=== PATIENT | female | born 1965 | race Caucasian/White ===

== ENCOUNTER 2019-09-09 10:28 | Emergency (ER) | payer MEDICARE, OTHER ==
[~2019-09-09] VITALS: Wt 87.1 kg
[2019-09-09 11:32] LABS: BASO # 0.1 10*3/uL (0.0-0.1); BASO % 0.6 % (0.0-1.0); EOS # 0.2 10*3/uL (0.0-0.4); EOS % 2.1 % (1.0-4.0); HEMATOCRIT 43.4 % (37.0-47.0); HEMOGLOBIN 13.1 g/dl (12.0-16.0); LYMPH # 3.2 10*3/uL (1.3-4.4); LYMPH % 29.4 % (27.0-41.0); MEAN CELL VOLUME 82.4 fl (81.0-99.0); MEAN CORPUSCULAR HGB 24.9 pg (27.0-31.0); MEAN CORPUSCULAR HGB CONC 30.2 g/dl (33.0-37.0); MEAN PLATELET VOLUME 10.8 fl (9.6-12.3); MONO # 0.7 10*3/uL (0.1-1.0); MONO % 6.5 % (3.0-9.0); NEUT # 6.6 10*3/uL (2.3-7.9); NEUT % 60.8 % (47.0-73.0); PLATELET COUNT AUTOMATED 397 10*3/uL (130-400); RED BLOOD COUNT 5.27 10*6/uL (4.10-5.10); WHITE BLOOD COUNT 10.8 10*3/uL (4.8-10.8)
[2019-09-09 11:36] LABS: BILIRUBIN NEGATIVE (NEGATIVE); BLOOD NEGATIVE (NEGATIVE); CLARITY CLEAR (CLEAR); COLOR YELLOW (YELLOW); GLUCOSE NEGATIVE (NEGATIVE); KETONE NEGATIVE (NEGATIVE); SPECIFIC GRAVITY 1.005 (1.005-1.030)
[2019-09-09 11:37] LABS: LEUKO ESTERASE TRACE (NEGATIVE); NITRITE NEGATIVE (NEGATIVE); PH 7.5 (5.0-9.0); UROBILINOGEN 0.2 E.U./dl (0.2-1.0)
[2019-09-09 11:45] LABS: RBC 0-2 rbc/hpf (0-2); WBC 0-2 wbc/hpf (0-5)
[2019-09-09 11:46] LABS: BACTERIA 2+; EPITHELIAL CELLS 0-2
[2019-09-09 11:57] LABS: ALBUMIN 4.1 gm/dl (3.1-4.5); ALKALINE PHOSPHATASE 98 U/L (45-117); BUN 7 mg/dl (7-24); CHLORIDE 112 mmol/L (98-107); POTASSIUM 3.7 mmol/L (3.5-5.1); SGOT/AST 21 IU/L (3-35); SGPT/ALT 22 U/L (12-78); SODIUM 143 mmol/L (136-145)
[2019-09-09] MEDS ORDERED: ABILIFY5 MG PO (13:56)
[2019-09-09] MEDS ORDERED: PREVACID30 M2 PO (13:57)
[2019-09-09] MEDS ORDERED: PRISTIQ50 MG PO (13:59)
[2019-09-09] MEDS ORDERED: B-12500 MC1 PO (14:00)
[2019-09-09] MEDS ORDERED: VITAMIN D3125 MCG PO (14:01)
[2019-09-09] MEDS ORDERED: LAMOTRIGINE150 MG PO (14:03)
[2019-09-09] MEDS ORDERED: LITHIUM CARBON300 M1 PO (14:05)
[2019-09-09] MEDS ORDERED: NYSTATIN15 GM T (14:06)
[2019-09-09] MEDS ORDERED: ROPINIROLE HYDRO1 MG PO (14:08)
[2019-09-09] MEDS ORDERED: CARAFATE1 GM/10 ML PO (14:09)
[2019-09-09] MEDS ORDERED: PROMETHAZINE25 M1 PO (14:10)
== END 2019-09-09 15:30 | disposition home health service (06) ==
LOC: ED 10:28
PROVIDERS: Emergency Medicine
DX: F32.3 Major depressive disorder, single episode, severe with psychotic features (principal); R41.82 Altered mental status, unspecified; F60.0 Paranoid personality disorder; R62.7 Adult failure to thrive; E11.9 Type 2 diabetes mellitus without complications; Z88.0 Allergy status to penicillin; Z88.5 Allergy status to narcotic agent; Z79.899 Other long term (current) drug therapy

== ENCOUNTER 2019-09-09 15:47 | Inpatient (IN) | payer MEDICARE, OTHER ==
[~2019-09-09] VITALS: Ht 170.1 cm; Wt 89.8 kg
[2019-09-09 15:34] VITALS: BP 138/64
--- NOTE | 2019-09-09 15:34 | NUR ---
ANNABELLA HOWELL a 54 year old F admitted via wheel chair from the EMERGENCY ROOM as a emergency 72 hr. hold admission. Arrived on unit at 1534. ALLERGIES: ASA, CODEINE, PCN. Vital signs are: [id number]/64 SPO2 100% RA. Admitted under the services of Dr. TARUN MENDIETA,[facility]. A search was conducted and hazardous articles were removed. Client was oriented to the unit. DONAL PANG PT IS CONFUSED. APPEARS TO HAVE INTELLECTUAL DEFICIT. PT WANTING PHYSICAL CONTACT WITH ALL STAFF, ATTEMPTING TO GIVE HUGS AND KISSES. PT BECAME SOMEWHAT ANXIOUS UPON ARRIVAL AND BEGAN MAKING CHILD-LIKE GRUNTS, APPEARS FEARFUL. PT CALMED WITH REDIRECTION AND EMOTIONAL SUPPORT. PT ABLE TO MINIMALLY EXPRESS NEEDS, STATES "I'M HUNGRY". PROVIDED WITH SNACK AND BEVERAGE. ABLE TO FEED SELF. PT IS A MAXIMUM 2 ASSIST WITH TRANSFERS, CURRENTLY IN W/C, PROPELLING SELF IN HALLS. PT IS INCONTINENT OF BLADDER, PROVIDED WITH HOC.
[~2019-09-09 15:47] MED LIST: ABILIFY5 MG PO; B-12500 MC1 PO; CARAFATE1 GM/10 ML PO; LAMOTRIGINE150 MG PO; LITHIUM CARBON300 M1 PO; NYSTATIN15 GM T; PREVACID30 M2 PO; PRISTIQ50 MG PO; PROMETHAZINE25 M1 PO; ROPINIROLE HYDRO1 MG PO; VITAMIN D3125 MCG PO
--- NOTE | 2019-09-09 15:51 | NUR ---
Spoke with Kyle at [facility]. Pt. will return to facility LTC and is her Own person at this time. Pt. has no family. Has a boyfriend who is currently ill himself. He trys to assist patient. NO POA or Guardian at this time.
[2019-09-09 19:40] VITALS: BP 139/68
--- NOTE | 2019-09-09 20:28 | NUR ---
24 HR chart check completed.
--- NOTE | 2019-09-10 00:02 | NUR ---
P-CONFUSED, SELECTIVELY MUTE, COGNITIVE DEFICIT, ANXIOUS I-ENCOURAGE VENTILATION OF FEELINGS & NEEDS, MONITOR BEHAVIORS, ADMINISTER MEDS, MONITOR SLEEP R-PT HAS BEEN SITTING IN THE DINING ROOM IN A WHEEL CHAIR KEEPING TO HERSELF & HOLDING A BABY DOLL. BEHAVIORS ARE CHILDLIKE. CONTINUOUSLY HOLDING BABY DOLL & LOOKING AT IT & ATTEMPTING TO PUT BINKI IN ITS MOUTH. PT IS MUTE. FACIAL APPEARANCE IS FEARFUL. DOES NOT MAKE NEEDS KNOWN VERBALLY. HELD A CUP OUT FOR A DRINK. INITIALLY MADE A FACE & TURNED HEAD FOR MEDS BUT ON SECOND ATTEMPT COMPLIANT WITH MEDS TAKEN CRUSHED & MIXED IN APPLESAUCE. FED SELF SNACK. NOTED TO HAVE INCREASED ANXIETY & CHLDLIKE NOISES & GRUNTS WHEN STAFF MOVED HER FROM DINING ROOM TO HER ROOM VIA WHEELCHAIR. EVENTUALLY CALMED WITH REASSURANCE. INCONTINENT OF BLADDER. HOC PROVIDED BY 2 STAFF ASSISTS. P-CONTINIUE TO MONITOR & PROVIDE PHYSICAL ASSISTANCE & EMOTIONAL SUPPORT
--- NOTE | 2019-09-10 05:46 | NUR ---
PT HAS SLEPT PAST 2229.
[2019-09-10 07:12] LABS: THYROID STIM HORMONE (HS) 2.77 uIU/ml (0.358-4.75)
[2019-09-10 07:41] LABS: VITAMIN D, 25-HYDROXY 51.3 ng/mL (30-100)
[2019-09-10 08:00] VITALS: BP 114/74
--- NOTE | 2019-09-10 08:05 | NUR ---
Treatment Plan meeting was held with Dr. Smith, MARY ALICE Vargas, RN, AT, INSURANCE CONSULTANT-S and Annealer Helper. Plan for discharge next week. Pt. is LTC Resident at the [facility] and will return at discharge. Dr. Smith Gave orders for Pt. to sign Voluntary Admission due to [place].
--- NOTE | 2019-09-10 11:28 | NUR ---
P: POOR COGNITION WITH MEMORY DEFICIETS, WEEPY, RAMBLED SPEECH, DIFFILTY WITH NEEDS AND COMMUNICATION, ATTACHMENT TO TOY BABY DOLL I: REDIRECT, ENCOURAGE CONVERSATION WITH PEERS AND STAFF, REORIENT TO TIME AND PLACE NEEDED. IDENTIFY TRIGGERS OF TEARFULNESS, IDENTIFY DOLL AND DISCUSS NEEDS TO BE WITH THE IT. R: PT HAS BEEN ABLE TO STATE WHEN SHE NEEDS TO GO TO THE BATHROOM, RAISING HAND AND WAVING TO STAFF TO CATCH ATTENTIONS, PT USES VARIOUS WORDS AND WILL BE REMINDED OF PROPER TERMS TO ASSIST IN MEMORY GAP. UNABLE TO BE STATE YEAR, UNABLE TO STATE WHAT LOCATION WAS, REORIENTED ASNEEDED. PT DID BECOME WEEPY AT TIMES THIS AM DUE TO FATIGUE, ENCOURAGED TO REMAIN UP UNTIL AFTER LUNCH AND HAVE A REST PERIOD. DOLL IS A COMFORT ITEM FOR HER. P: CONTINUE TO MONITOR PT FOR COMMUNICATION SKILLS, ENCOURAGE INTERACTIONS, REDIRECTION, NO SI/HI OR DELUSIONS NOTED. MEDICAITON COMPLIANT AND CONTINENT OF B&B THIS SHIFT.
--- NOTE | 2019-09-10 11:43 | NUR ---
AM GROUP PT PARTICIPATED IN ASSESSMENT. PT WAS UNABLE TO ANSWER SOME QUESTIONS AND WAS FOCUSED ON LEAVING AND "GOING HOME". PT THEN WAS WITH HOT WORT SETTLER AND DID NOT ATTEND MORNING GROUP THERAPY.
--- NOTE | 2019-09-10 12:30 | NUR ---
Karlene Loomis from [facility] in to see patient for Onsite Assessment. Advised of Plans to discharge Next Week with return to the [facility]. Provided with Updates and faxed Clinical Updates to facility.
--- NOTE | 2019-09-10 14:25 | NUR ---
Observed pt crying while in the activity room sitting in a wheelchair by a table. Went to pt who repeatedly stated, "Help me." Provided support and reassured pt that she would be helped here. At RNs suggestion, moved pt in the room so that she could watch TV. Pt was not satisfied. Pt was then moved again and placed closer to the door. Pt continued to be unsatisfied. Observed pt reposition herself in the w/c and then begin to propel herself from the room. Went with pt to one of the quiet rooms and sat with pt. Pt was tearful at first. Empathized with pt and continued to attempt to engage pt in conversation. Pt slowly began talking. Pt shared that she had a brother Ga who was killed in a motorcycle accident when he was a young adult. She spoke of having two children Isaac who has an addiction to cocaine and a daughter named Marci. She shared that her friend Judah is fighting cancer. Pt also spoke of her mother who had dementia and is now . Pt displayed dysphasia and would become upset with herself when she was unable to say the word that she wanted. Validated to pt that it must be extremely frustrating to not be able to say what pt wanted to say. Pt nodded her head up and down and stated, "Yes, frustrating." Pt continued to hold the baby doll throughout the time together. At one point pt stated, "People probably think I'm crazy because I'm holding this doll." Reassured pt that it was fine for pt to hold the doll and spoke of it being comforting to hold a baby. Pt nodded her head in agreement. Pt stated that she her mouth was dry. Informed pt that we would go get pt some water. As this life insurance underwriter was wheeling pt to the activity room, pt put her feet down. Pt stated, "I don't want to go in there." Returned pt to the quiet room and got pt a drink of water. Later the hospital liaison for the [facility] visited with pt. Pt knew her and appeared happy to see her. Pt then stated that she wanted to return to the [facility] today. All present reassured pt that she would return to the [facility] in a few days. Pt then asked that we each promise that pt will return to the [facility].
--- NOTE | 2019-09-10 15:39 | NUR ---
PM GROUP PT DID NOT ATTEND AFTERNOON GROUP THERAPY. PT WAS IN BED RESTING.
--- NOTE | 2019-09-10 17:45 | NUR ---
Shift chart check completed.
[2019-09-10 20:00] VITALS: BP 110/64
--- NOTE | 2019-09-10 22:49 | NUR ---
Patient resting quietly with no c/o discomfort. Respirations easy and regular. Vital signs stable. No overt distress. DONAL PANG
--- NOTE | 2019-09-11 05:05 | NUR ---
24 HR chart check completed.
--- NOTE | 2019-09-11 05:11 | NUR ---
PT SLEPT 8 HOURS
[2019-09-11 08:00] VITALS: BP 122/82
--- NOTE | 2019-09-11 08:06 | NUR ---
Patient eating breakfast at this time in dining room with peers. Respirations easy and regular. Vital signs stable. No overt distress. PAM PEÑALOZA on unit to see pt at this time, update given.
--- NOTE | 2019-09-11 08:56 | NUR ---
PHYSICAL THERAPY Screen received pt is shelter care resident [facility] w staff SCOTT peñaloza, pt has limited ambulatory skills and mainly propels in w/c w assist. Per staff pt is at her baseline no skilled need at this time. Please consult PT if status changes, thank you. Shelley Jimenez PT
--- NOTE | 2019-09-11 11:24 | NUR ---
and on unit to see pt at this time, made aware of urine culture result and pt not currently recieving ATB therapy. Per no tx needed at this time d/t colony count 50,000. NNO recieved at this time.
--- NOTE | 2019-09-11 13:37 | NUR ---
AM GROUP PT WAS ENCOURAGED TO ATTEND MORNING GROUP THERAPY BUT CHOSE NOT TO ATTEND. PT STAYED IN THE [facility].
--- NOTE | 2019-09-11 14:31 | NUR ---
Pt continent this shift, staff has attempted to assist pt to BR multiple times t/o morning and afternoon, pt refuses, pt laying in bed at this time resting per pt request. Will reattempt to bisi pt before dinner.
--- NOTE | 2019-09-11 15:52 | NUR ---
notified of Mead level 1.47, verbal order recieved to decrease Mead dose to 300mg TID with first dose to be given tonight at HS. Order read back and verified. Witnessed by 2nd RN [email or web address].TABBY.
--- NOTE | 2019-09-11 15:55 | NUR ---
PM GROUP PT DID NOT ATTEND AFTERNOON GROUP THERAPY.PT WAS IN BED RESTING.
--- NOTE | 2019-09-11 17:06 | NUR ---
Pt toileted before dinner, pt refused to assist staff with standing or sit on toilet correctly. Pt refusing to bed legs to sit on toilet, attempted to put self on floor. Pt required staff assist x4 to safely complete hygiene care and transfer pt back to wheelchair. Immediately upon returning to chair for dinner pt yelling out "it's not fair, I want to go back to bed, it's not fair". Encouraged pt to stay up for dinner. Pt agreeable. Pt eating dinner at this time.
--- NOTE | 2019-09-11 17:52 | NUR ---
P- CONFUSION, ANXIETY, ISOLATIVE, UNCOOPERATIVE WITH HANDS ON CARE, COMMUNICATION DEFICIT. DEPRESSED MOOD, PERIODS OF TEARFULNESS THIS AM. I- ORIENTATION, MOOD AND BEHAVIORS ASSESSED. ASSESSED PT FOR SI/HI, INTENT OR PLAN. ASSESSED PT FOR S/S HALLUCINATIONS, PARANOIA AND/OR DELUSIONS. MEDICATIONS ADMINISTERED PER PHYSICIAN'S ORDERS. ASSISTANCE WITH ADL CARE PROVIDED NEEDED. ENCOURAGED PT TO ATTEND AND PARTICIPATE IN JAMIL [facility]IEU GROUPS AND ACTIVITIES. R- PT IS ALERT WITH CONFUSION, RESPS EASY AND EVEN ON ROOM AIR. MOOD APPEARS DEPRESSED, ANXIOUS AT TIMES, TEARFUL THIS AM. AFFECT FLAT. COMMUNICATION DEFICIT NOTED. AT TIMES PT ONLY COMMUNICATES USING GRUNTING NOISES AND HAND MOTIONS, AT OTHER TIMES PT IS ABLE TO COMMUNICATE MORE CLEARLY WITH SPOKEN WORDS. PT DENIES SI/HI, INTENT OR PLAN. PT DENIES HALLUCINATIONS, NO RESPONSE TO INTERNAL STIMULI NOTED. PT APPEARS FEARFUL OF PEERS, REFUSES TO GO INTO DINING ROOM DEPSITE ENCOURAGEMENT, PT REMAINS WITHDRAWN TO SELF. PT UNCOOPERATIVE WITH HANDS ON CARE, REFUSED BATHROOM MULTIPLE TIMES, ONCE PT WAS IN BATHROOM FOR HYGIENE CARE PT REFUSED TO PARTICIPATE IN CARE OR BEAR WEIGHT FOR TRANSFERS REQUIRING EXTRA STAFF ASSISTANCE TO COMPLETE ADLS SAFELY. PT IS MED COMPLIANT WITHOUT DIFFICULTY. NO ACUTE DISTRESS NOTED. P- PLAN TO CONTINUE CURRENT TREATMENT, CONTINUE TO MONITOR MOOD AND BEHAVIORS, PROVIDE APPROPRIATE REORIENTATION, REDIRECTION AND 1:1 NEEDED. CONTINUE TO ENCOURAGE MEDICATION COMPLIANCE WELL GROUP ATTENDANCE AND PARTICIPATION.
--- NOTE | 2019-09-11 18:23 | NUR ---
SHIFT CHART CHECK COMPLETED.
[2019-09-11 19:48] VITALS: BP 130/82
--- NOTE | 2019-09-11 20:00 | NUR ---
P--PARANOIA, NON COMPLIANCE WITH DAILY ADL'S I--TOILETED CLIENT WITH MUCH DIFFICULTY AND ASSIST OF 4 EARLIER IN DAY. PLACED IN QUIET ROOM AT HER REQUEST. DIETARY NEEDS MET BY STAFF. EMOTIONAL SUPPORT PROVIDED R--I WANT TO GO TO BED. YOU GUYS ARE MEAN. MEDICATION COMPLIANT WITH MUCH ENCOURAGEMENT P--MONITOR FOR CHANGES IN BEHAVIOR/MOOD. MONITOR Q 15 MINUTES AND PRN FOR SAFETY
--- NOTE | 2019-09-12 05:36 | NUR ---
CLIENT HAS FINALLY FALLEN ASLEEP AFTER ROOMMATE MOVED.
--- NOTE | 2019-09-12 05:36 | NUR ---
24 HR chart check completed.
[2019-09-12 07:52] VITALS: BP 128/65
--- NOTE | 2019-09-12 11:35 | NUR ---
P: PARANOID, FEARFUL, ATTENTION SEEKING, CHILDLIKE, I&R: COMFORT PT AND ENSURE SHE FEELS SAFE IN AREAS, PT BECOMES UPSET IF TAKEN TO LARGE LOUNGE AREA WITH PEERS, MORE AT EASE WHEN SHE IS IN QUIET ROOM WITH BACK TO A WALL. PT DOES NOT ALWAYS USE WORDS FOR COMMUNICATIONS SHE WILL MUMBLE AND MOAN OUT RANDOMLY, SHE WILL COMMUNICATE WITH SOME STAFF CONSISTENTLY WITH WORDS AND OTHERS HAND MOTIONS. ENCOURAGE TO COMMUNICATE WITH WORDS AND WITH ALL AROUND STAFF MEMBERS. PT UNABLE TO STATE WHY SHE NO LONGER WANTS TO SIT IN THE LOUNGE, BUT REFUSES TO ENTER THE ROOM. STAFF HAS OFFERED VARIOUS SITTING AREAS WITH BACK TO WALL. PT WILL PUT FEET DOWN AND WILL NOT EVEN LET STAFF TAKE HER TO THE DOOR WAY. AT THIS TIME PT TO CONITNUE TO BE ENCOURAGED AND COMFORTED ON HER SAFETY ON OUR UNIT. PT HAS REQUESTED NUMEROUS ITEMS AND THEN WHEN OFFERED SHE STATES THAT IT IS NOT ENOUGH OR NOT RIGHT. PT HAS ATTACHMENT TO A BABY DOLL AND FINDS COMFORT IN THE ITEM. SHE IS WILLING TO RELEASE DOLL TO STAFF FOR "BABYSITTING" P: CONTINUE TO MONITOR FOR BEHAVIORS, NO SI/HI NOTED, PT REMAINS MEDICATION COMPLIANT AND 15 MIN CHECKS P:CONTINUE TO WORK WITH PT ON HER SAFETY NEEDS
--- NOTE | 2019-09-12 11:50 | NUR ---
AM GROUP PT CHOSES NOT TO ATTEND ANY GROUP THERAPY. PT STAYS IN THE QUIET ROOM OR SITS RIGHT OUTSIDE OF THE NURSES STATION.
--- NOTE | 2019-09-12 15:37 | NUR ---
Consult for called to office.
--- NOTE | 2019-09-12 15:44 | NUR ---
PM GROUP PT DID NOT ATTEND AFTERNOON GROUP THERAPY. PT WAS IN BED RESTING.
--- NOTE | 2019-09-12 18:54 | NUR ---
PT LIMITED VERBAL INTERACTION TODAY, POOR APPETITE THIS EVENING. REDIRECTED THROUGHOUT THE DAY
[2019-09-12 20:00] VITALS: BP 120/78
--- NOTE | 2019-09-12 23:45 | NUR ---
P-TEARFUL, CONFUSION, LIMITED COMMUNICATION, ISOLATIVE I-REDIRECTION WITH 1:1 THERAPEUTIC INTERVENTIONS AND PRESENT REALITY. EDUCATE AND ENCOURAGE GROUP THERAPY WHILE AWAKE R-PATIENT MEDICATION COMPLAINT AT HS. PATIENT ISOLATIVE IN QUIET AREA AT HS. PATIENT ABLE TO SELF PROPEL ON UNIT IN WHEELCHAIR. PATIENT WITH EPISODES OF TEARFULNESS, BUT NOT WILLING TO TALK ABOUT PATIENT'S SADNES. PATIENT WITH NO INTERACTION WITH PEERS AT HS. PATIENT NOT PATIENT WITH NO HALLUCINATIONS OR DELUSIONS AT THIS TIME. PATIENT WITH NO SUICIDAL OR HOMICIDAL IDEATIONS. PATIENT PROVIDED NOURISHEMENT AND FLUIDS AT HS. P-CONTINUE TO ENCOURAGE MEDICATION COMPLIANCE, CONTINUE TO PRESENT REALITY, ENCOURAGE GROUP THERAPY WHILE AWAKE
--- NOTE | 2019-09-13 04:54 | NUR ---
24 HR chart check completed.
--- NOTE | 2019-09-13 06:22 | NUR ---
PATIENT SLEPT 4-5 HOURS OF INTERRUPTED SLEEP THROUGHOUT SHIFT. Q 15 MINUTE CHECKS MAINTAINED. 24 HR chart check completed.
[2019-09-13 07:28] VITALS: BP 138/68
--- NOTE | 2019-09-13 09:08 | NUR ---
DR. JACNITO CALLED IN TO REVIEW ANTIBOTICS AND LABS. VERBAL ORDER TO D/C CIPRO AND START ZYVOX 600MG PO BID.
--- NOTE | 2019-09-13 12:12 | NUR ---
AM GROUP/LEISURE PT IN ATTENDNACE AND UNABLE TO PARTICIPATE DUE TO LEVELS OF COGNITION. THIS STAFF HAVING TROUBLE UNDERSTANDING PT VERBALLY. PT WILL CONTINUE TO ASTTEND GROUP SESSIONS AND PARTICIPATE TO BEST OF ABILITY.
[2019-09-13 13:13] LABS: BILIRUBIN NEGATIVE (NEGATIVE); CLARITY SL CLOUDY (CLEAR); COLOR YELLOW (YELLOW); GLUCOSE NEGATIVE (NEGATIVE); KETONE NEGATIVE (NEGATIVE)
[2019-09-13 13:14] LABS: BACTERIA 4+; BLOOD NEGATIVE (NEGATIVE); LEUKO ESTERASE 3+ (NEGATIVE); NITRITE NEGATIVE (NEGATIVE); PH 7.5 (5.0-9.0); SPECIFIC GRAVITY 1.005 (1.005-1.030); UROBILINOGEN 0.2 E.U./dl (0.2-1.0); WBC TNTC wbc/hpf (0-5)
--- NOTE | 2019-09-13 14:35 | NUR ---
DR. SHRESTHA NOTIFIED OF UA RESULTS.
--- NOTE | 2019-09-13 15:36 | NUR ---
P: TEARFUL, DISRUPTIVE AND YELLING OUT IN DINING ROOM. I: 1:1, REDIRECTION, CHANGE IN ENVIROMENT WITH LOW STIMULI AND PROVIDING SPACE. R: EFFECTIVE. PATIENT IS ALERT TO PERSON WITH CONFUSION. LONG/SHORT TERM MEMORY DEFICIT. MOOD IS IRRITABLE, ANXIOUS AND HOPELESS/HELPLESS. NO RESPONSE TO INTERNAL STIMULI. NO VOICE STATEMENTS OF HI, SI OR PAIN. MEDICATION COMPLIANT WITH MUCH ENCOURAGMENT. Q 15 MINUTE SAFETY CHECKS. INTERACTIVE WITH STAFF. TWO PERSON ASSIST WITH ACTIVITIES OF DAILY LIVING. INCONTINENT OF BOWEL AND BLADDER. SET UP FOR MEALS WITH ENCOURAGEMENT. INTAKES ARE POOR WITH ADEQUATE FLUIDS. PATIENT DID NOT ASSIST WITH TRANSFERRING SELF TO BED. MECHANICAL LIFT FOR TRANSFER FOR SAFETY. UP IN JESSICA CHAIR. MONITOR FOR AGGRESSION, MEDICATION COMPLIANCE. PROVIDE 1:1 AND REDIRECTION. ENCOURAGE PATIENT TO TAKE MEDICATIONS AND TALK TO STAFF TO VOICE NEEDS.
--- NOTE | 2019-09-13 16:03 | NUR ---
PM GROUP/BINGO!/CRAFT PT IN BED RESTING AT THIS TIME. PT WILL CONTINUE TO BE ENCOURAGED TO ATTEND AND PARTICIPATE IN FUTURE GROUP SESSIONS TO BEST OPF PT ABILITY.
--- NOTE | 2019-09-13 16:07 | NUR ---
Shift chart check completed.
[2019-09-13 20:00] VITALS: BP 140/70
--- NOTE | 2019-09-13 21:46 | NUR ---
Patient alert to person only with confusion noted. Memory deficits noted. Mood paranoid. Patient very isolative to self even while in diningroom with other patients. Patient non-compliant with HS medications after multiple attempts. Patient placed her hand over her mouth and repeatedly said "no". Attempted to provide 1:1 for emotional support but patient refused. Redirected/reoriented when needed. Plan to continue to encourage medication compliance. Also continue to provide emotional support and to redirect/reorient when needed/appropriate. Will continue to monitor moods/behaviors. Q 15 minute safety checks continued and maintained. See [facility] flowsheet for further documentation.
--- NOTE | 2019-09-14 00:15 | NUR ---
24 HR chart check completed.
--- NOTE | 2019-09-14 06:00 | NUR ---
Patient slept approx. 5 hours throughout shift. Q 15 minute safety checks continued and maintained.
[2019-09-14 07:55] VITALS: BP 114/67
--- NOTE | 2019-09-14 10:11 | NUR ---
DR GONZALEZ AND DR JACINTO ON UNIT TO ASSESS PATIENT. DR. JACINTO REQUESTED FOR BLADDER SCAN TO BE DONE AND TO NOTIFY OF DEVELOPING A TEMPERATURE.
--- NOTE | 2019-09-14 11:06 | NUR ---
DR. DICKEY NOTIFIED OF BLADDER SCAN, [id number] NOTED .
--- NOTE | 2019-09-14 13:19 | NUR ---
P: TEARFUL, DISRUPTIVE AND YELLING OUT IN DINING ROOM. I: 1:1, REDIRECTION, CHANGE IN ENVIROMENT WITH LOW STIMULI AND PROVIDING SPACE. R: EFFECTIVE. PATIENT IS ALERT TO PERSON WITH CONFUSION. LONG/SHORT TERM MEMORY DEFICIT. MOOD IS IRRITABLE, ANXIOUS AND HOPELESS/HELPLESS. NO RESPONSE TO INTERNAL STIMULI. NO VOICE STATEMENTS OF HI, SI OR PAIN. MEDICATION COMPLIANT WITH MUCH ENCOURAGMENT. Q 15 MINUTE SAFETY CHECKS. INTERACTIVE WITH STAFF. TWO PERSON ASSIST WITH ACTIVITIES OF DAILY LIVING. INCONTINENT OF BOWEL AND BLADDER. SET UP FOR MEALS WITH ENCOURAGEMENT. INTAKES ARE POOR WITH ADEQUATE FLUIDS. PATIENT DID NOT ASSIST WITH TRANSFERRING SELF TO BED. MECHANICAL LIFT FOR TRANSFER FOR SAFETY. UP IN JESSICA CHAIR. P: MONITOR FOR AGGRESSION, MEDICATION COMPLIANCE. PROVIDE 1:1 AND REDIRECTION. ENCOURAGE PATIENT TO TAKE MEDICATIONS AND TALK TO STAFF TO VOICE NEEDS.
--- NOTE | 2019-09-14 15:36 | NUR ---
Shift chart check completed.
[2019-09-14 20:00] VITALS: BP 121/69
--- NOTE | 2019-09-14 23:04 | NUR ---
24 HR chart check completed.
--- NOTE | 2019-09-15 02:50 | NUR ---
P-CONFUSED, ANXIOUS, TEARFUL, ISOLATIVE, LIMITED VERBALLY, DISRUPTIVE I-ENCOURAGE VENTILATION OF FEELINGS & NEEDS, MONITOR BEHAVIORS, ADMINISTER MEDS, MONITOR SLEEP R-PT HAS BEEN SITTING IN THE DINING ROOM IN A WHEEL CHAIR KEEPING TO HERSELF. BEHAVIORS ARE CHILDLIKE. SELECTIVELY MUTE & TEARFUL AT TIMES. REQUIRES MUCH PROMPTING & ENCOURAGEMENT TO COMMUNICATE WITH STAFF TO MAKE HER NEEDS KNOWN. INITIALLY REFUSED MEDS BY TURNING HEAD AWAY BUT COMPLIANT AFTER REDIRECTION MEDS TAKEN CRUSHED & MIXED IN PUDDING. ATE SNACK. INCREASED ANXIETY, CHILD LIKE BEHAVIOR WHILE IN DINING ROOM, WHINING & CRYING LOUDLY & WAS TAKEN OUT OF DINING ROOM. MOVES ABOUT UNIT VIA WHEELCHAIR. INCONTINENT OF BLADDER. HOC PROVIDED BY 2 STAFF ASSISTS & JUVENCIO LIFT. P-CONTINIUE TO MONITOR & PROVIDE PHYSICAL ASSISTANCE & EMOTIONAL SUPPORT
--- NOTE | 2019-09-15 05:36 | NUR ---
PT HAS SLEPT PAST 2144.
[2019-09-15 07:43] VITALS: BP 143/71
--- NOTE | 2019-09-15 08:30 | NUR ---
Treatment Plan meeting was held with Dr. Smith, MARY ALICE Vargas RN, PRODUCTION ASSOCIATE-S and Internal Controls Consultant. Plan for discharge at the end of the week, possible with return to the [facility].
--- NOTE | 2019-09-15 10:40 | NUR ---
P: PATIENT DISRUPTIVE TO GROUP, VERBAL THREATS AT STAFF, WAVING HAND. STATING "IF YOU SHUT THAT DOOR, I WILL GO BLISTIC" PATIENT YELLING OUT DURING TRANSFER TO CART FOR RENAL ULTRASOUND. PATIENT TAKEN WITH STAFF ASSISTANCE TO RADIOLOGY. PATIENT TOLD NURSE "DOESN'T MATTER WHAT THE RESULTS STAY, I'M NOT GETTING OUT OF HERE; GET THE HELL OUT OF HERE OR I WILL GIVE YOU ONE ON THESE" SHOWING HER FIST AT THE NURSE. I: ONE ON ONE, REDIRECTION, PROVIDE SPACE NEEDED. AFTER GOING TO RADIOLOGY PATIENT ASSISTED INTO QUIET ROOM WITH LOW STIMULI. PATIENT ATE LUNCH WITHOUT ANY OUBURST. PATIENT IS ALERT TO PERSON WITH CONFUSION. LONG/SHORT TERM MEMORY DEFICITS. SELECTIVELY MUTE. MOOD IS IRRITABLE/ANGRY. VERBAL AGGRESSION, THREATENING NURSE. MEDICATION COMPLAINT. Q 15 MINUTE SAFETY CHECKS MAINTAINED. CONTINUE TO MONITOR FOR AGGRESSION, YELLING OUTBURST. PROVIDE ONE ON ONE, REDIRECTION/ORIENTATION, CHANGE OF ENVIRONMENT WITH LOW STIMULI AND SPACE NEEDED. R: P:
--- NOTE | 2019-09-15 11:41 | NUR ---
Notified Neema Lamar [facility] of Plans to discharge at the end of the week possible .
--- NOTE | 2019-09-15 11:48 | NUR ---
AM GROUP PT WAS PRESENT AT THE START OF MORNING GROUP THERAPY BUT REFUSED ANY ACTIVITY OFFERED. PT WAS PARANOID ABOUT THE DOOR BEING CLOSED AND STATED, "I WILL GO BALLISTIC! I SWEAR, I WILL GO BALLISTIC, I'M NOT KIDDING" PT WAS LATER REMOVED FROM THE DAYROOM AND TAKEN FOR TESTING.
--- NOTE | 2019-09-15 15:03 | NUR ---
PM GROUP/WATERCOLORS PT DID NOT ATTEND AFTERNOON GROUP THERAPY. PT WAS IN BED RESTING.
[2019-09-15 19:51] VITALS: BP 142/70
--- NOTE | 2019-09-15 20:40 | NUR ---
EVENING/CRAFT/MOVIE PT IN BED RESTING AT THIS TIME. PT UNABLE TO ATTEND/PARTICIPATE AT THIS TIME DUE TO LEVELS OF COGNITION.
--- NOTE | 2019-09-16 01:38 | NUR ---
P-TEARFUL, CONFUSION, LIMITED COMMUNICATION, AGITATED, DEMANDING I-REDIRECTION WITH 1:1 THERAPEUTIC INTERVENTIONS AND PRESENT REALITY. EDUCATE AND ENCOURAGE GROUP THERAPY WHILE AWAKE R-PATIENT MEDICATION COMPLAINT AT HS WITH ENCOURAGEMENT. PATIENT WITH EPISODES OF WHINING AND WITH MUNIPULATIVE BEHAVIOR AND DEMANDING OF STAFF THROUGHOUT SHIFT. PATIENT UPSET WITH THIS NURSE AND OTHER NURSING STAFF WHEN ATTEMPTING TO COMMUNICATE WITH PATIENT AND HOLDING UP HAND WITH ATTEMPTS TO FLIP NURSING OFF. PATIENT AGITATED WHEN UNABLE TO MAKE NEEDS KNOWN. PATIENT WITH NEW ORDER FOR ANTIBIOTIC IV THERAPY AT HS. PERIPHERAL 18G IV PLACED BY REGISTERED NURSE IN RIGHT ANTECUBITAL. STERILE TECHNIQUE USED. ATTEMPT X 1. + BLOOD RETURN. IV PATENT AND PATIENT TOLERATED FLUSH WITHOUT DIFFICULTY.TOURNIQUET REMOVED. TRANSPARENT DRESSING PLACED OVER SITE. PATIENT WITH MULTIPLE ATTEMPTS TO REMOVE IV THROUGHOUT SHIFT. PERIPHERAL IV SITE WITH NO REDNESS, EDEMA, OR ELEVATED TEMPERATURE. PATIENT TOLERATED IV ANTIBIOTC INFUSION AND FLUSH WITHOUT DIFFICULTY. PATIENT MEDICATED WITH ATIVAN 1MG PO AFTER ALL NONPHARMACOLGIC ATTEMPTS MADE BY NURSING STAFF. PATIENT ATTEMPTED TO CLIMB OUT OF BED, NONSTOP YELLING OUT, USING VULGAR LANGUAGE, AND THROWING FLUIDS. MEDICATION WITH EFFECTIVE RESULTS AT THIS TIME. PATIENT PROVIDED FLUIDS THROUGHOUT SHIFT. PATIENT WITH NO SUICIDAL OR HOMICIDAL IDEATIONS. P-CONTINUE TO ENCOURAGE MEDICATION COMPLIANCE, CONTINUE TO PRESENT REALITY, ENCOURAGE GROUP THERAPY WHILE AWAKE
[2019-09-16 07:48] VITALS: BP 138/68
--- NOTE | 2019-09-16 09:00 | NUR ---
P: IRRITABLE, YELLING OUT AT NURSE, DISRUPTIVE TO OTHER PATIENTS IN DINING ROOM. YELLING AT NURSE WITH STARTING IV ANTIBOTICS. I: ONE ON ONE, REDIRECTION AND PROVIDED SPACE. R: PROVIDING SPACE EFFECTIVE. PATIENT IS ALERT TO PERSON WITH CONFUSION. SELECTIVE COMMUNICATION WITH STAFF. NO RESPONSE TO INTERNAL STIMULI. MOOD IS IRRITABLE/ANGRY AT TIMES. NO VOICED STATEMENTS OF HI/SI OR PAIN. MEDICATION COMPAINT WITH ENCOURAGEMENT. Q 15 MINUTE SAFETY CHECKS MAINTAINED. 2 PERSON ASSIST WITH ACTIVITIES OF DAILY LIVING, INCONTINENT OF BOWEL AND BLADDER. SET UP FOR MEALS, INTAKES ARE POOR WITH MUCH ENCOURAGEMENT. FAIR ON FLUID P: CONTINUE TO MONITOR FOR AGGRESSION AND MEDICATION COMPLIANT. PROVIDE ONE ON ONE AND REDIRECTION NEEDED.
--- NOTE | 2019-09-16 10:00 | NUR ---
Treatment Plan meeting was held with MARY ALICE Vargas, RN, AT, LOBSTER CATCHER-S and Traffic Signal Mechanic. Plan for discharge Next Week with Demi Sunday discharge with return to the [facility].
--- NOTE | 2019-09-16 12:25 | NUR ---
DR GONZALEZ ON UNIT TO ASSESS PT, UPDATE PROVIDED.
--- NOTE | 2019-09-16 15:53 | NUR ---
PM GROUP PT WAS PRESENT FOR AFTERNOON GROUP THERAPY BUT REFUSES TO PARTICIPATE. PT KEPT TRYING TO TELL ME SOMETHING BUT IS TOO HARD TO UNDERSTAND. PT WAS OFFERED A DRY ERASE BOARD TO COMMUNICATE BUT DECLINED. PT BECOMES AGITATED WHEN SHE IS NOT UNDERSTOOD. PT WAS REMOVED FROM THE DAYROOM TO BE TOILETED AND LAYED DOWN.
--- NOTE | 2019-09-16 19:45 | NUR ---
24 HR chart check completed.
[2019-09-16 19:48] VITALS: BP 136/64
--- NOTE | 2019-09-16 20:10 | NUR ---
MEDICATED WITH MOM @ 2002
--- NOTE | 2019-09-16 20:38 | NUR ---
EVENING/LEISURE SKILLS PT IN ATTENDNACE FIRST HALF OF GROUP BUT BECAME AGITATED WITH HANDS ON CARE AND BEGAN YELLING OUT. PT DISRUPTIVE AND TAKEN OUT OF GROUP AT THIS TIME BY NURSE.
--- NOTE | 2019-09-17 05:48 | NUR ---
PT HAS BEEN AWAKE THROUGHOUT MOST OF THE SHIFT SITTING IN A JESSICA CHAIR IN THE DINING ROOM WITH OTHER PEERS WATCHING TV. HAS SLEPT APPX 2 HOURS.
--- NOTE | 2019-09-17 06:50 | NUR ---
PULLED IV OUT. RESTARTED LEFT HAND. IV started left hand with #20 angiocath after 2 attempts. The IV site was prepped with Chloraprep. Heparin lock attached. IV solution infusing at cc/hr. Sterile dressing applied. Patient tolerated precedure well. Procedure performed according to [facility] policy & procedure. SAJI HERRING
[2019-09-17 08:00] VITALS: BP 117/64; BP 127/70
--- NOTE | 2019-09-17 08:00 | NUR ---
TREATMENT PLAN MEETING WAS HELD WITH DR. MCNEIL, MARY ALICE FINNEY, RN, AT, HYDROELECTRIC MECHANIC-S AND PENSION EXAMINER. PLAN FOR DISCHARGE NEXT WEEK. PT. WILL RETURN TO THE [facility] AT DISCHARGE.
--- NOTE | 2019-09-17 09:06 | NUR ---
DR TUTTLE ON UNIT TO ASSESS PT, UPDATE PROVIDED.
--- NOTE | 2019-09-17 11:53 | NUR ---
AM GROUP PT DID NOT ATTEND MORNING GROUP THERAPY. PT WAS IN THE QUIET ROOM WITH AN IV.
--- NOTE | 2019-09-17 15:51 | NUR ---
PM GROUP PT DID NOT ATTEND AFTERNOON GROUP THERAPY. PT WAS IN BED RESTING.
--- NOTE | 2019-09-17 18:54 | NUR ---
PT GIVEN PRN MILK OF MAGNESIA AT SUPPER TIME. INEFFECTIVE AT THIS TIME.
[2019-09-17 20:00] VITALS: BP 132/64
--- NOTE | 2019-09-17 21:44 | NUR ---
Patient alert to person only with confusion noted. Memory deficits noted. Mood paranoid. Patient very isolative to self even while in diningroom with other patients. Patient non-compliant with HS medications after multiple attempts. Patient placed her hand over her mouth and repeatedly said "no" and "you go". Attempted to provide 1:1 for emotional support but patient refused. Redirected/reoriented when needed. Plan to continue to encourage medication compliance. Also continue to provide emotional support and to redirect/reorient when needed/appropriate. Will continue to monitor moods/behaviors. Q 15 minute safety checks continued and maintained. See [facility] flowsheet for further documentation.
--- NOTE | 2019-09-18 00:41 | NUR ---
24 HR chart check completed.
--- NOTE | 2019-09-18 05:28 | NUR ---
Patient slept approx. 2.5 hours throughout shift. Q 15 minute safety checks continued and maintained.
[2019-09-18 08:00] VITALS: BP 140/58
--- NOTE | 2019-09-18 08:00 | NUR ---
Patient eating breakfast in dining room with peers. Respirations easy and regular. Vital signs stable. No overt distress. PAM PEÑALOZA on unit to see pt at this time, update given.
--- NOTE | 2019-09-18 08:51 | NUR ---
on unit to see pt at this time.
--- NOTE | 2019-09-18 09:00 | NUR ---
TREATMENT PLAN MEETING WAS HELD WITH DR. MCNEIL, RN, AT, TOUR ESCORT-S AND BDC MANAGER. PLAN FOR DISCHARGE NEXT WEEK. PT. WILL RETURN TO THE [facility] AT DISCHARGE.
--- NOTE | 2019-09-18 09:46 | NUR ---
PRN MOM GIVEN FOR CONSTIPATION. WILL MONITOR FOR EFFECTIVENESS.
--- NOTE | 2019-09-18 10:30 | NUR ---
IV started left forearm with #22 protective cath after 2 attempts. Site prepped with Chloroprep. Sterile dressing applied. Patient tolerated procedure well. IV VANCOMYCIN infusing at 200 cc/hr. PAM PEÑALOZA
--- NOTE | 2019-09-18 11:15 | NUR ---
SPOKE WITH RE: NO DOCUMENTED BM SINCE 09/13/19. PT HAS HAD MOM X3 WITHOUT EFFECT. NEW ORDERS RECIEVED FOR MIRALAX.
--- NOTE | 2019-09-18 11:20 | NUR ---
PT PULLED OUT IV. IV started right forearm with #24 protective cath after 1 attempts. Site prepped with Chloroprep. Sterile dressing applied. Patient tolerated procedure well. IV VANCOMYCIN infusing at 200 cc/hr. PT PULLED OUT IV AT 1120. IV RESUMED AT 1155. PAM PEÑALOZA
--- NOTE | 2019-09-18 11:56 | NUR ---
AM GROUP PT IS UNABLE TO ATTEND GROUP THERAPY DUE TO ISSUES WITH AN IV. PT WAS IN GROUP BUT CONTINUES TO PULL IV OUT. PT IS UNWILLING TO PARTICIPATE IN ANY ACTIVITY OFFERED AND THERE IS A COMMUNICATION BARRIER.
--- NOTE | 2019-09-18 13:45 | NUR ---
Patient is requesting to speak to her sister Jacquie. Searched pt's chart in an attempt to locate a phone number for Jacquie. Anabell Ho, maintenance planner, phoned [employer] to inquire if they had a number for Jacquie. This food writer and Anabell Ho searched via the internet for contact info for Jacquie Encinas. Also attempted to phone pt's significant other Judah Parham but was unable to leave a voicemail. Informed pt of this.
--- NOTE | 2019-09-18 19:03 | NUR ---
MOM GIVEN THIS AM EFFECTIVE FOR MEDIUM BM.
[2019-09-18 19:59] VITALS: BP 148/78
[2019-09-18 20:00] VITALS: BP 120/64
--- NOTE | 2019-09-18 21:34 | NUR ---
P--SELECTIVE MUTE I--MEDICATED PER ORDERS. STAFF PROVIDED SNACK AND FLUIDS. R-LOOKS AT ME WHILE I TALK TO HER . NON VERBAL P-MONITOR FOR CHANGES IN MOOD/BEHAVIOR/ MONITOR Q 15 MINUTES AND PRN FOR SAFETY
--- NOTE | 2019-09-19 00:35 | NUR ---
24 HR chart check completed.
--- NOTE | 2019-09-19 06:05 | NUR ---
SLEPT 8 HOURS WITH ONE AWAKENING.. UP AND DRESSED. IN [facility] CHAIR READY FOR DAY
[2019-09-19 07:51] VITALS: BP 111/61
--- NOTE | 2019-09-19 08:00 | NUR ---
TREATMENT PLAN MEETING WAS HELD WITH JASON FINNEY RN, AT, ENGINEERING PROGRAM ANALYST-S AND FURNITURE REPAIR TECHNICIAN. PLAN FOR DISCHARGE NEXT WEEK, POSSIBLE SUNDAY WITH [facility] TO [facility].
--- NOTE | 2019-09-19 12:38 | NUR ---
SPOKE WITH KRISTIE LUBIN FROM THE [facility]. ADVISED OF PLANS TO DISCHARGE NEXT WEEK WITH POSSIBLE SUNDAY DISCHARGE. CLINICAL UPDATES FAXED TO FACILITY .
--- NOTE | 2019-09-19 12:39 | NUR ---
AM GROUP PT DID NOT ATTEND MORNING GROUP THERAPY. PT WAS RESTING IN A QUIET ROOM
--- NOTE | 2019-09-19 14:54 | NUR ---
DOCTOR THIAGO UPDATED THAT PT PULLED OUT IV NEW ORDER TO START IV FOR NEXT DOSE OF ATB
--- NOTE | 2019-09-19 15:36 | NUR ---
PM GROUP PT DID NOT ATTEND AFTERNOON GROUP THERAPY. PT WAS IN BED NAPPING
--- NOTE | 2019-09-19 16:42 | NUR ---
P-ZERO MOOD OR BEHAVIOR - SLOW TO PROCESS AND RESPOND I-1;1 GIVE PT TIME TO PROCESS AND RESPOND, ENCOURAGE PT TO INTERACT WITH STAFF AND PEERS ,ENCOURAGE TO ATTEND/PARTICIPATE IN GROUP ENCOURAGE MEDICATION COMPLIANCE, Q 15 MIN SAFETY CHECKS AND BEHAVIOR R- 1;1 EFFECTIVE, PT RESPONDING TO STAFF/PEERS IN SLOW PROCESS, TAKES MEDICATION WITHOUT DIFFICULITY P- CONTINUE WITH MEDICATION COMPLIANCE, 1;1 , ENCOURAGE WITH GROUP PARTICIPATION/ATTENDENCE, STAFF/PEER INTERACTION Q 15 MIN SAFETY CHECKS SEE [facility] FLOWSHEET FOR SPECIFIC MONITORING
--- NOTE | 2019-09-19 17:01 | NUR ---
SKIN CHECK COMPLETED WITH BILATERAL BLK EXTERMITIES BRUISING NOTED AND BOTH UPPER EXTERMITIES BRUISING NOTED
[2019-09-19 20:00] VITALS: BP 110/82
--- NOTE | 2019-09-20 05:24 | NUR ---
P-CONFUSION I-REDIRECTION WITH 1:1 THERAPEUTIC INTERVENTIONS AND PRESENT REALITY. EDUCATE AND ENCOURAGE GROUP THERAPY WHILE AWAKE R-PATIENT MEDICATION COMPLAINT AT HS. PATIENT WITH NO HALLUCINATION OR DELUSIONS. PATIENT WITH NO SUICIDAL OR HOMICIDAL IDEATIONS. PATIENT PROVIDED NOURISHEMENT AND FLUIDS AT HS. P-CONTINUE TO ENCOURAGE MEDICATION COMPLIANCE, CONTINUE TO PRESENT REALITY, ENCOURAGE GROUP THERAPY WHILE AWAKE
--- NOTE | 2019-09-20 06:20 | NUR ---
PATIENT SLEPT 8 HOURS UNINTERRUPTED SLEEP THROUGHOUT SHIFT. Q 15 MINUTE CHECKS MAINTAINED. 24 HR chart check completed.
[2019-09-20 08:00] VITALS: BP 133/67
--- NOTE | 2019-09-20 08:00 | NUR ---
Patient in dining room with peers with no c/o discomfort. Respirations easy and regular. Vital signs stable. No overt distress. DONAL PANG
--- NOTE | 2019-09-20 11:45 | NUR ---
AM GROUP/LEISURE SKILLS PT IN ATTENDANCE AND PARTICIPATES BY WORKING ON A COLORING PICTURE. PT ASKS TO USE COLORED PENCILS. PT MORE VERBAL AND THIS STAFF MORE ABLE TO UNDERSTAND PT AT THIS TIME. PT WILL CONTINUE TO ATTEND/PARTICIPATE IN GROUP TO BEST OF PT ABILITY.
--- NOTE | 2019-09-20 15:58 | NUR ---
PM GROUP/LEISURE SKILLS PT IN BED RESTING AT THIS TIME.
[2019-09-20 20:00] VITALS: BP 115/71
--- NOTE | 2019-09-20 21:46 | NUR ---
Patient alert to person only with confusion noted. Memory deficits noted. Mood calm and cooperative. Patient isolative to self in patient's room. Patient compliant with HS medications with much encouragement. Attempted to provide 1:1 for emotional support but patient refused. Redirected/reoriented when needed. Plan to continue to encourage medication compliance. Also continue to provide emotional support and to redirect/reorient when needed/appropriate. Will continue to monitor moods/behaviors. Q 15 minute safety checks continued and maintained. See [facility] flowsheet for further documentation.
--- NOTE | 2019-09-21 00:14 | NUR ---
24 HR chart check completed.
--- NOTE | 2019-09-21 05:53 | NUR ---
Patient slept approx. 7hours throughout shift. Q 15 minute safety checks cotninued and maintained.
[2019-09-21 08:00] VITALS: BP 121/67
--- NOTE | 2019-09-21 12:12 | NUR ---
AM GROUP/EXERCISE/BRAIN GAMES PT IN ATTENDNACE AND PARTICIPATED IN EXERCISE. PT SOCIALIZING WITH THIS STAFF DURING GROUP TALKING ABOUT SISTERS AND MOM. PT PLEASANT AND ABLE TO COMMUNICATE BETTER. PT EXPRESSES NO PARANOIA OR FEARFUL BEHAVIORS AT THIS TIME. PT HELD BABY DOLL ENTIRE GROUP AND WILL CONTINEU TO BE ENCOURAGED TO ATTEND/PARTICIPATE IN GROUP TO BEST OF PT ABILITY.
--- NOTE | 2019-09-21 16:37 | NUR ---
PT COOPERATIVE, PLEASANT, MEDICATION COMPLIANT. NO COMPLAINT OF PAIN OR DISCOMFORT, PT CONTINUES TO ENJOY HOLDING HER BABY DOLL A COMFORT ITEM. SHE CONTINUES WITH ST/LT MEMORY DEFICITS NO BEHAVIORS NOTED AT THIS TIME
[2019-09-21 20:00] VITALS: BP 102/88
--- NOTE | 2019-09-21 23:15 | NUR ---
Patient alert to person only with confusion noted. Memory deficits noted. Mood calm and cooperative. Patient isolative to self in patient's room. Patient compliant with HS medications without any difficulty. Attempted to provide 1:1 for emotional support but patient refused. Redirected/reoriented when needed. Plan to continue to encourage medication compliance. Also continue to provide emotional support and to redirect/reorient when needed/appropriate. Will continue to monitor moods/behaviors. Q 15 minute safety checks continued and maintained. See [facility] flowsheet for further documentation.
--- NOTE | 2019-09-22 00:45 | NUR ---
24 HR chart check completed.
--- NOTE | 2019-09-22 05:48 | NUR ---
Patient slept approx. 8 hours throughout shift. Q 15 minute safety checks continued and maintained.
[2019-09-22 08:00] VITALS: BP 119/63
--- NOTE | 2019-09-22 09:20 | NUR ---
DR. CHARLES ON FLOOR TO ASSESS PATIENT, UPDATE PROVIDED.
--- NOTE | 2019-09-22 12:09 | NUR ---
Pt was very pleasant during interaction this AM. Pt smiled and stated that she would be discharging tomorrow to [facility]. Pt thanked this physician underwriter for "believing in her."
--- NOTE | 2019-09-22 12:25 | NUR ---
Shift chart check completed.
--- NOTE | 2019-09-22 12:44 | NUR ---
NO ADVERSE MOODS OR BEHAVIORS NOTED THIS SHIFT. MOOD STABLE. REMAINS AT BASELINE ORIENTATION, CONFUSED AT TIMES; REORIENTATION EFFECTIVE. EATING AND DRINKING ADEQUATELY. PLEASANT INTERACTIONS AND PARTICIPATING. MOOD CALM AND STABLE. WITH NO DELUSIONS, HALLUCINATIONS, SI/HI, INTENT OR PLAN. PT UTILIZING GERICHAIR WITH FREQUENT TURN SCHEDULE IN PLACE; JUVENCIO FOR TRANSFERING. ENCOURAGE FREQUENT ROM WITH ASSISTANCE PROVIDED. MED COMPLIANT. FALLING STAR PROGRAM IN PLACE. Q15 MINUTE CHECKS MAINTAINED FOR SAFETY.
--- NOTE | 2019-09-22 13:00 | NUR ---
Physical Therapy evaluation completed with full evaluation to follow. Recommend physical therapy per plan of care and SNF upon discharge. Thank you for this referral. Shelley Jimenez PT
--- NOTE | 2019-09-22 14:58 | NUR ---
Occupational Therapy evaluation completed on THREE with full evaluation to follow. Recommend occupational therapy per plan of care and SNF upon discharge. Thank you for this referral. FLAKITO SPARKS OTR/L
--- NOTE | 2019-09-22 15:05 | NUR ---
KRISTIE LUBIN FROM [facility] IN TO SEE PATIENT FOR ONSITE ASSESSEMENT. KRISTIE IS AWARE OF PLANS TO DISCHARGE PATIENT TOMMOROW. PROVIDED WITH UPDATES AND CLINICAL UPDATES.
[2019-09-22 19:41] VITALS: BP 105/71
--- NOTE | 2019-09-22 23:28 | NUR ---
P--DEPRESSION RESOLVED I--DISCUSSED MEDICATION BEFORE GIVING. STAFF PROVIDED SNACK AND FLUIDS..ENCOURAGED HER TO MOVE SELF R- CLIENT CHILDLIKE, UNABLE TO HOLD CONVERSATION. CONFUSED P- MONITOR FOR CHANGES IN BEHAVIOR/MOOD. MONITOR Q15 MINS AND PRN FOR SAFETY
--- NOTE | 2019-09-23 03:43 | NUR ---
24 HR chart check completed.
--- NOTE | 2019-09-23 07:35 | NUR ---
PHYSICAL THERAPY Patient seen this am for therapy visit and was sitting up in activity room Chelsea chair upon therapist arrival. Patient identified by name / and was very pleasant this morning. OT visitor service assistant was also present for observation only this session as patient transported via [place] chair to [facility] for transfer training. Patient performed sit stand transfer at rail, B UE support, MOD A x 2 on first trial, tolerating static stand 50 seconds, voicing increased B LE pain / weakness. Patient fatigues quickly and needed seated rest break prior to completing 2nd standing trial, improved to MIN A x 2, tolerating 63 seconds static stand. Patient remains high risk for falling and returned to [place] chair. Patient remained in activity room with body alarm, under [facility] staff Supervision. Will continue per POC as tolerated, total treatment time 14 minutes. Lai Mello, INSTRUCTOR PSYCHIATRIC AIDE
--- NOTE | 2019-09-23 07:40 | NUR ---
OT NOTE Prior to coming to floor spoke with charge nurse Ankita and reported that therapy would be coming to the floor to treat this pt. Pt was seen this A.M. 1:1 for 15 minute OT session with CRAFT DEMONSTRATOR and nursing staff present for observation only. Upon arrival pt was sitting upright in the mere chair in the dining brown. Pt identified by name and and had no complaints at this time. Pt was taken out into the hallway where she completed multiple sit to stand transfers from chair level with modA X 2 for inital stand and Marisa X 2 for others with use of hand rail for UE support. Challenged pt's static standing tolerance needed for increased I in self care tasks and functional transfers, pt was able to tolerate aprox 50-63 seconds before sitting due to fatigue. Throughout static stand pt required constant verbal prompts for correcting her posture and holding her head up. Pt was left sitting upright in the mere chair in the dining brown under U staff supervision and body alarm activated for safety. Continue with rec D/C plan to SNF. KATHY Santiago
[2019-09-23 08:14] VITALS: BP 101/63
--- NOTE | 2019-09-23 09:00 | NUR ---
TREATMENT PLAN MEETING WAS HELD WITH DR. MCNEIL, MARY ALICE FINNEY, RN, AT, STEAM SETTER-S AND HEARING THERAPY DIRECTOR. PLAN FOR DISCHARGE TODAY [facility] TRANSPORTATION HAS BEEN ARRANGED WITH [facility] TO TRANSPORT WITH ELECTROENCEPHALOGRAPHIC TECHNICIAN TIME BETWEEN 3:00 AND 4:00 P.M.
[2019-09-23] MEDS ORDERED: MIRTAZAPINE15 M1 PO (09:36)
[2019-09-23] MEDS ORDERED: ROZEREM8 MG PO (09:36)
[2019-09-23] MEDS ORDERED: LAMOTRIGINE100 MG PO (09:36)
[2019-09-23] MEDS ORDERED: LATU120T PO (09:36)
--- NOTE | 2019-09-23 11:48 | NUR ---
AM GROUP/EXERCISE AND [place] PT ATTENDED MORNING GROUP THERAPY AND PARTICIPATED TO THE BEST OF HER ABILITY. PT EXPRESSED NO PARANOIA OR FEAR WHILE IN GROUP.PT IS SET TO BE DISCHARGED FROM THE UNIT THIS AFTERNOON.
--- NOTE | 2019-09-23 12:24 | NUR ---
LUIZ FERGUSON, AT [facility] GIVEN NURSE TO NURSE REPORT. STATED TO CALL [facility] IF SHE HAD ANY QUESTIONS. PHYLLIS SAYS "OK, THANK YOU, I THINK WE ARE GOOD. WE HAVE HAD HER BEFORE"
--- NOTE | 2019-09-23 15:13 | NUR ---
Met with pt prior to her discharge. Pt is pleasant and animated during conversation. Pt states that she is feeling good and is ready for discharge. Pt is very pleased with the doll that Baylee Ho, order planner, brought for the pt to take with her.
--- NOTE | 2019-09-23 15:15 | NUR ---
Patient is discharging today to the [facility]. Follow-up will be with Dr Smith, visiting psychiatrist. While at [facility], pt's behaviors resolved. Pt's ability to communicate also improved. Pt was pleasant and cooperative. She did participate in programming as she was able.
--- NOTE | 2019-09-23 15:42 | NUR ---
PM GROUP/CRAFTS PT WAS PRESENT FOR AFTERNOON GROUP WAITING ON HER RIDE. PT IS DISCHARGED TODAY.
--- NOTE | 2019-09-23 16:35 | NUR ---
PT OFF UNIT AT THIS TIME VIA [facility]. PT TRANSPORTED OUT BY STRETCHER AND 2 AMBULANCE ATTENDANTS. ALL BELONGINGS AND PAPERWORK SENT WITH PT. PT SMILING AND SAYING GOODBYE TO STAFF AND PEERS.
--- NOTE | 2019-09-24 07:05 | NUR ---
OCCUPATIONAL THERAPY CO-SIGN I approve of the Occupational Therapy notes written above. FLAKITO SPARKS, OTR/L
--- NOTE | 2019-09-24 07:19 | NUR ---
PHYSICAL THERAPY CO-SIGN I approve of the Physical Therapy notes written above. Shelley Jimenez PT
== END 2019-09-23 16:35 | disposition other institution (70) | DRG 883 ==
LOC: 3N 15:47
PROVIDERS: Registered Nurse; ADMIT Psychiatry & Neurology Psychiatry
DX: F63.81 Intermittent explosive disorder (principal); F33.2 Major depressive disorder, recurrent severe without psychotic features; E87.8 Other disorders of electrolyte and fluid balance, not elsewhere classified; F79 Unspecified intellectual disabilities; N30.90 Cystitis, unspecified without hematuria; B95.2 Enterococcus as the cause of diseases classified elsewhere; D64.9 Anemia, unspecified; G89.4 Chronic pain syndrome; Z87.891 Personal history of nicotine dependence; Z88.0 Allergy status to penicillin; Z88.6 Allergy status to analgesic agent; Z88.5 Allergy status to narcotic agent; Z79.899 Other long term (current) drug therapy

== ENCOUNTER 2019-12-04 14:02 | Inpatient (IN) | payer MEDICARE, MEDICAID ==
[~2019-12-04] VITALS: Ht 165.1 cm; Wt 83.9 kg
[~2019-12-04 14:02] MED LIST changes: +LAMOTRIGINE100 MG PO; +LATU120T PO; +MIRTAZAPINE15 M1 PO; +ROZEREM8 MG PO
[2019-12-04 15:24] VITALS: BP 126/77
[2019-12-04] MEDS ORDERED: MIRTAZAPINE15 M2 PO (15:25)
[2019-12-04] MEDS ORDERED: ROZEREM8 MG PO (15:26)
--- NOTE | 2019-12-04 15:43 | NUR ---
Nursing screen and occupational therapy orders received. Will follow up with patient for completion of an OT eval. Thank you. Amira Tripathi, OTR/L
--- NOTE | 2019-12-04 15:49 | NUR ---
ANNABELLA HOWELL a 54 year old F admitted via wheel chair from the OTHER as a voluntary admission. Arrived on unit at 1518. ALLERGIES: ASA, CODEINE, PCN. Vital signs are: [phone]/77. The client signed the following forms with stated understanding: Authorization For The Release of Medical Information, Clothing List, Consent to Voluntary Admission and Hospitalization, Consent and Release Forms/Receipt of Rights, Acknowledgement of Advance Directive Information, Behavioral Health Consent Form, and Informed Consent of Medications. Admitted under the services of Dr. TARUN MENDIETA,[facility]. A search was conducted and hazardous articles were removed. Client was oriented to the unit. DONAL PANG
--- NOTE | 2019-12-04 15:52 | NUR ---
CALL PLACED TO HOSPITALIST CELL # , DR. MEMBRENO ANSWERED, MADE AWARE OF NEW CONSULT FOR MEDICAL MANAGEMENT
--- NOTE | 2019-12-04 16:30 | NUR ---
DR. MCNEIL NOTIFIED OF DEPRESSION SCORE OF 15/15 AND VOICING THOUGHT OF SI BY WANTING TO CUT WRIST WITH KNIFE. NEW ORDER- 1:[address] MCNEIL CAN ASSESS IN MORNING.
[2019-12-04 16:51] LABS: BASO # 0.1 10*3/uL (0.0-0.1); BASO % 0.9 % (0.0-1.0); EOS # 0.2 10*3/uL (0.0-0.4); HEMATOCRIT 36.5 % (37.0-47.0); LYMPH # 2.6 10*3/uL (1.3-4.4); LYMPH % 32.7 % (27.0-41.0); MEAN CELL VOLUME 76.4 fl (81.0-99.0); MEAN CORPUSCULAR HGB 22.6 pg (27.0-31.0); MEAN CORPUSCULAR HGB CONC 29.6 g/dl (33.0-37.0); MEAN PLATELET VOLUME 10.3 fl (9.6-12.3); MONO # 0.7 10*3/uL (0.1-1.0); MONO % 8.3 % (3.0-9.0); NEUT # 4.4 10*3/uL (2.3-7.9); NEUT % 55.7 % (47.0-73.0); PLATELET COUNT AUTOMATED 430 10*3/uL (130-400); RED BLOOD COUNT 4.78 10*6/uL (4.10-5.10); RED CELL DISTRI WIDTH 17.9 % (0-14.5); WHITE BLOOD COUNT 7.8 10*3/uL (4.8-10.8)
[2019-12-04 16:59] LABS: COLOR YELLOW (YELLOW)
[2019-12-04 17:00] LABS: BILIRUBIN NEGATIVE (NEGATIVE); BLOOD NEGATIVE (NEGATIVE); CLARITY CLEAR (CLEAR); GLUCOSE NEGATIVE (NEGATIVE); KETONE NEGATIVE (NEGATIVE); LEUKO ESTERASE NEGATIVE (NEGATIVE); NITRITE NEGATIVE (NEGATIVE); UROBILINOGEN 0.2 E.U./dl (0.2-1.0)
[2019-12-04 17:02] LABS: RBC 0-2 rbc/hpf (0-2)
[2019-12-04 17:03] LABS: BACTERIA 2+
[2019-12-04 17:06] LABS: ALBUMIN 3.4 gm/dl (3.1-4.5); ALKALINE PHOSPHATASE 100 U/L (45-117); BUN 12 mg/dl (7-24); CHLORIDE 110 mmol/L (98-107); CHOLESTEROL 156 mg/dL (<200); CREATININE 0.47 mg/dL (0.55-1.02); HDL CHOLESTEROL 61 mg/dl (40-60); LDL CHOLESTEROL 78 mg/dL (9-159); POTASSIUM 4.1 mmol/L (3.5-5.1); SGOT/AST 21 IU/L (3-35); SGPT/ALT 24 U/L (12-78); SODIUM 142 mmol/L (136-145); TOTAL PROTEIN 7.3 gm/dL (6.4-8.2); TRIGLYCERIDES 86 mg/dl (<150); VLDL CHOLESTEROL 17 mg/dL (6-40)
[2019-12-04 17:14] LABS: THYROID STIM HORMONE (HS) 0.619 uIU/ml (0.358-4.75)
[2019-12-04 17:43] LABS: VITAMIN D, 25-HYDROXY 48.4 ng/mL (30-100)
[2019-12-04 20:00] VITALS: BP 127/86
--- NOTE | 2019-12-04 21:11 | NUR ---
MINI MENTAL STATUS COMPLETED
--- NOTE | 2019-12-04 21:12 | NUR ---
24 HR chart check completed.
--- NOTE | 2019-12-04 23:04 | NUR ---
P-DEPRESSED, SUICIDAL THOUGHTS I-1:1 FOR EMOTIONAL SUPPORT, ADMINISTER MEDS, MONITOR SLEEP, MAINTAIN 1:1 OBSERVATION STATUS R-PT VERY VERBAL & EXPRESSED THE EMOTIONS SHE HAS BEEN GOING THROUGH RECENTLY. SHE IS ALERT & ORIENTED X 4. DEPRESSED WITH CONTINUED SUICIDAL THOUGHTS. CONTRACTS FOR SAFETY WHILE IN THE HOSPITAL. STATED, "IT TOOK EVERY OUNCE OF STRENGTH I HAD NOT TO TAKE THAT SERATED KNIFE OFF OF MY DINNER PLATE & SLICE MY WRISTS. THE FACT THAT I ENDED UP LIKE THIS. MY PHYSICAL CONDITION. THE ONLY WAY I CAN WALK IS WITH A WALKER. MY BOY FRIEND HAS BEEN PRESSURING ME TO COME HOME HE TOLD ME HE WAS GOING TO MOVE ME OUT TO THE GARAGE. HES VERBALLY ABUSIVE. HE HASNT CALLED ME FOR A WEEK. ITS STILL HARD TO DEAL WITH MOMS PASSING FROM 2 YEARS AGO. ATE SNACK. COMPLIANT WITH MEDICATIONS. P-CONTINUE TO MONITOR
--- NOTE | 2019-12-05 05:52 | NUR ---
1:1 CONSTANT OBSERVATION CONTINUES & HAS TAY MAINTAINED. PT HAS SLEPT INTERMITTENTLY PAST 2230 WITH APPROX 5 HOURS TOTAL SLEEP
--- NOTE | 2019-12-05 06:00 | NUR ---
PT RECEIVED SHOWER & SHAMPOO WITH 1 STAFF ASSIST
--- NOTE | 2019-12-05 06:39 | NUR ---
DR BROWNLEE NOTIFIED THAT PTS HOME MEDICATIONS HAVE NOT YET BEEN ORDERED & SHE WAS SEEN BY DR OLGUIN YESTERDAY. HE STATED THAT HE WOULD TAKE A LOOK AT THEM.
[2019-12-05 08:00] VITALS: BP 125/78
--- NOTE | 2019-12-05 08:10 | NUR ---
Patient in dining area eating breakfast. Respirations easy and regular. Vital signs stable. No overt distress. Telehealth with Dr. Smith. Updates provided. DONAL PANG
--- NOTE | 2019-12-05 08:15 | NUR ---
Treatment Plan meeting was held via telephone with Dr. Smith, MARY ALICE Vargas, K[place], DERMATOLOGY SPECIALIST-S and Information Assurance Officer. Plan for discharge Next week. Pt. Came to [facility]. Will reach out to facility today to discuss discharge Planning.
--- NOTE | 2019-12-05 09:30 | NUR ---
Physical Therapy evaluation completed on U with full evaluation to follow. Recommend physical therapy per plan of care and SNF upon discharge. Thank you for this referral. Shelley Jimenez PT
--- NOTE | 2019-12-05 10:48 | NUR ---
AM GROUP PT WAS PRESENT FOR GROUP THERAPY, MOVIE, COLORING, AND LOW STIMULATION; PT ACTIVELY PARTICIPATING, PLEASANT, REQUESTING TO HAVE HAIR BRAIDED, SMILING AND INTERACTIVE WITH STAFF.
--- NOTE | 2019-12-05 11:57 | NUR ---
Met with pt individually this AM. Pt stated that she doesn't have clear memories of being in [facility] before. Pt explained that she is working with PT/OT with the hope that she can leave the . She sivahter stated that her residential boyfriend had been pushing her to discharge. When she told him that she needed to stay longer at the , he stated that he was going to move her belongings to the garage and that pt could live in the garage. Pt stated that she realized that she didn't need to be with someone like that, so pt stated that she broke up with him. Pt also recognizes that she is continuing to mourn the of her mother, which took place approx 2 years ago. Because of these reasons, pt stated that she began to feel suicidal. Pt was briefly tearful when speaking about her mother. Discussed this further. Explored the positives in pt's life: Continued improvement in pt's phyisical abilities and a plan to work with social woker for placement within the community. Pt smiled when she spoke of transitioning to either an AL or apartment. Pt voiced that she is wanting to improve her mood. When asked if pt was currently feeling suicidal, pt nodded her head up and down. Pt is motivated for treatment and was able to recognize positives in her life.
--- NOTE | 2019-12-05 13:22 | NUR ---
PT TRANSFERRING FROM TOILET TO WHEELCHAIR WHEN PT STUMBLED APPARENTLY D/T INDUSTRIAL REAL ESTATE AGENT ON NONSKID SOCKS CATCHING ON THE FLOOR. PT BEGAN TO LEAN FORWARD TO KNEES AND MENTAL HEALTH WORKER YELLED FOR ASSISTANCE, PT ASSISTED SAFELY TO SITTING POSITION IN WHEELCHAIR WITH STAFF ASSIST X3.
--- NOTE | 2019-12-05 13:40 | NUR ---
PHYSICAL THERAPY Screen and PT eval received, pt has been evaluated and is on caseload Shelley Jimenez PT
--- NOTE | 2019-12-05 14:51 | NUR ---
Spoke with Karlene Loomis from the [facility]. Pt. will return to facility at discharge. Pt. is LTC. Clinical Updates faxed to facility.
--- NOTE | 2019-12-05 17:48 | NUR ---
PT SPOKE WITH MALE FRIEND VIA TELEPHONE. STATES THAT HER CONVERSATION WAS "OK". PT STATES THAT HE TOLD HER SHE MISUNDERSTOOD HIM WHEN HE STATED THAT HE WOULD MOVE HER TO THE HOSPITAL FOR SPECIAL SURGERY, PT STATES THAT THIS IS NOT A DIFFICULT STATEMENT TO MISUNDERSTAND. PT STATES HE TOLD HER SHE HAS BEEN AT THE [facility] FOR TOO LONG AND THAT HE WOULD STILL LIKE HER TO MOVE IN WITH HIM. PT STATES THAT SHE TOLD HIM SHE WOULD SEE WHAT HAPPENS AFTER SHE GETS HERSELF STRONGER. PT EXPRESSES TO STAFF THAT SHE KNOWS SHE MUST GET STRONGER FOR HERSELF, STATING THAT "IF HE CAN'T ACCEPT THAT THEN I DON'T KNOW WHAT TO TELL HIM". WILL CONTINUE TO PROVIDE EMOTIONAL SUPPORT NEEDED.
--- NOTE | 2019-12-05 19:43 | NUR ---
24 HR chart check completed.
[2019-12-05 19:58] VITALS: BP 118/69
--- NOTE | 2019-12-05 20:52 | NUR ---
P-DEPRESSED, SUICIDAL THOUGHTS I-1:1 FOR EMOTIONAL SUPPORT, ADMINISTER MEDS, MONITOR SLEEP, MAINTAIN LINE OF SIGHT OBSERVATION STATUS R-PT IS ALERT & ORIENTED X 4. DEPRESSED MOOD WITH INTERMITTENT SUICIDAL THOUGHTS. CONTRACTS FOR SAFETY. STATED SHE TALKED TO HER BOYFRIEND ON THE PHONE TODAY & HE STILL WANTS HER TO COME BACK HOME. "I STILL NEED TO GET MY THERAPY. I'M NOT READY TO GO HOME YET. NOBODY IS GOING TO TELL ME WHAT TO DO" ATE SNACK. COMPLIANT WITH MEDICATIONS. MEDICATED WITH PRN TYLENOL 1000 MG @ 2019 FOR C/O LOWER BACK PAIN "ARTHRITIS". RATED PAIN 04/01. SPENDS LEISURE TIME SITTING IN THE DINING ROOM COLORING. P-CONTINUE TO MONITOR
--- NOTE | 2019-12-06 04:41 | NUR ---
TYLENOL HAS BEEN EFFECTIVE. PT HAS SLEPT QUIETLY PAST 2200 WITH 2 BRIEF AWAKENINGS TO GO TO THE BATHROOM WITH ASSISTANCE FROM STAFF.
[2019-12-06 07:24] VITALS: BP 124/78
--- NOTE | 2019-12-06 10:13 | NUR ---
AM GROUP PT WAS PRESENT FOR GROUP THERAPY, MOVIE, COLORING, AND LOW STIMULATION.
--- NOTE | 2019-12-06 16:44 | NUR ---
PM GROUP ACTIVITY WITH BEACH BALL COPING SKILLS/ POSITIVE REINFORCEMENT HELD THIS AFTERNOON. PT WAS PRESENT BUT PARTICIPATED BY COLORING
[2019-12-06 20:00] VITALS: BP 130/64
--- NOTE | 2019-12-06 21:50 | NUR ---
Patient alert and oriented x4. Mood is calm,pleasant and cooperative. Patient has thoughts of suicide intermittently. Patient denies having any at this time. Patient contracts for safety. Patient also denies any hallucinations. No s/s of any responding to internal stimuli noted at this time. Patient compliant with HS medications without any difficulty. Provide emotional support when needed. Line of sight continued and maintained. Plan to continue to encourage medication compliance. Also continue to provide emotional support when needed. Also continue line of sight as per doctor's orders. See [facility] flowsheet for further documentation.
--- NOTE | 2019-12-07 00:13 | NUR ---
24 HR chart check completed.
--- NOTE | 2019-12-07 05:28 | NUR ---
Patient slept approx. 6.5 hours throughout shift. Line of sight continued and maintained.
[2019-12-07 07:52] VITALS: BP 110/64
--- NOTE | 2019-12-07 08:20 | NUR ---
Patient in dining room eating breakfast. Respirations easy and regular. Vital signs stable. No overt distress. WOODROW COYLE, ON UNIT TO ASSESS PT. UPDATES PROVIDED. DONAL PANG RN
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
[2019-12-07 20:00] VITALS: BP 126/77
--- NOTE | 2019-12-07 20:33 | NUR ---
Medicated with Tylenol po prn for c/o chronic lower back pain. Will monitor effectiveness.
--- NOTE | 2019-12-07 21:29 | NUR ---
Patient alert and oriented x4. Mood is calm,pleasant and cooperative. Patient has thoughts of suicide intermittently. Patient denies having any at this time. Patient contracts for safety. Patient also denies any hallucinations. No s/s of any responding to internal stimuli noted at this time. Patient interactive with staff and other patients. Patient compliant with HS medications without any difficulty. Provide emotional support when needed. Line of sight continued and maintained. Plan to continue to encourage medication compliance. Also continue to provide emotional support when needed. Also continue line of sight as per doctor's orders. See [facility] flowsheet for further documentation.
--- NOTE | 2019-12-08 00:23 | NUR ---
24 HR chart check completed.
--- NOTE | 2019-12-08 05:26 | NUR ---
Patient slept approx. 6 hours throughout shift. Line of sight continued and maintained.
[2019-12-08 07:47] VITALS: BP 112/68
--- NOTE | 2019-12-08 08:00 | NUR ---
Patient eating breakfast in dining room with peers. Respirations easy and regular. Vital signs stable. No overt distress. PAM PEÑALOZA on unit to see pt at this time, update given. updated via telemedicine.
--- NOTE | 2019-12-08 08:15 | NUR ---
Treatment plan meeting was held with MARY ALICE Vargas, Dr. Smith Via Telephone, RN, WERO and Vp Customer Development. Plan for discharge Sunday. Pt. will return to [facility].
--- NOTE | 2019-12-08 09:10 | NUR ---
PHYSICAL THERAPY Patient seen this am for therapy visit and was sitting in her w/c in quiet room upon therapist arrival. Patient identified by name / and was joined by OTR who was completing her Evaluation. Patient was pleasant this morning, presenting with increased B LE edema in Dorsum of foot. Patient instructed to continue elevating B LE's, completing ankle pumps PRN to control edema. Patient performed seated B LE therex, all planes, x 10 reps each without c/o, followed by several sit to stand transfers, MOD A. Patient ambulated with use of wh walker, 15'x 1, MIN/CGA, w/c follow secondary to increased fatigue, while demonstrating slow, unsteady gait pattern and increased B knee flexion. Patient returned to w/c and remained in activity room with body alarm, under [facility] staff Supervision. Will continue per POC as tolerated, total treatment time 18 minutes. Lai Mello, SCREEN TENDER
--- NOTE | 2019-12-08 09:15 | NUR ---
Occupational Therapy evaluation completed on 3 with full eval to follow. Precautions include fall risk, 3N unit precautions,ulnar and median nerve palsy both hands,muscle weakness, moderate complexity level [id number]. Recommend OT per pOC and return to [facility] for OT. Thank you. Gabby Stanford OTR/l
--- NOTE | 2019-12-08 09:28 | NUR ---
WORK ORDER ENTERED TO REQUEST WHEELCHAIR WHEELS BE RAISED PER THERAPY.
--- NOTE | 2019-12-08 09:40 | NUR ---
Spoke with Neema [facility]oom[facility] at [facility]. Advised of Plans to discharge Sunday. Clinical Updates faxed to facility.
--- NOTE | 2019-12-08 09:41 | NUR ---
PRN TYLENOL 1000MG PO GIVEN AT THIS TIME PER PT REQUEST FOR C/O BACK PAIN RATED LEVEL 10/10. WILL MONITOR FOR EFFECTIVENESS.
--- NOTE | 2019-12-08 10:45 | NUR ---
TYLENOL EFFECTIVE. PT VOICES NO FURTHER C/O PAIN/DISCOMFORT AT THIS TIME.
--- NOTE | 2019-12-08 13:00 | NUR ---
GROUP NOTE - "WHAT MAKES YOU HAPPY AND SATISFIED" PT ACTIVELY PARTICIPATED IN GROUP BY IDENTIFYING POSITIVES IN HER LIFE WHICH ARE MEANINGFUL TO HER AND MAKE HER FEEL HAPPY AND SATISFIED. THESE TOPICS WERE FURTHER DISCUSSED IN GROUP SETTING WITH STAFF AND PEERS.
--- NOTE | 2019-12-08 16:04 | NUR ---
Shift chart check completed.
--- NOTE | 2019-12-08 16:47 | NUR ---
P- PT REPORTS CONTINUED DEPRESSED MOOD, INTERMITTENT SUICIDAL THOUGHTS WITHOUT PLAN. CONTRACTS FOR SAFETY. I- ORIENTATION, MOOD AND BEHAVIORS ASSESSED. ASSESSED PT FOR SI/HI, INTENT OR PLAN. ASSESSED PT FOR S/S HALLUCINATIONS, PARANOIA AND/OR DELUSIONS. MEDICATIONS ADMINISTERED PER PHYSICIAN'S ORDERS. ASSISTANCE WITH ADL CARE PROVIDED NEEDED. ENCOURAGED PT TO ATTEND AND PARTICIPATE IN [facility] GROUPS AND ACTIVITIES. R- PT IS ALERT AND ORIENTED X4. MEMORY APPEARS TO BE INTACT. RESPS EASY AND EVEN ON ROOM AIR. PT REPORTS MOOD "STILL DEPRESSED BUT STARTING TO FEEL BETTER". AFFECT IS BROAD RANGE AND APPROPRIATE. SPEECH IS SOFT, COHERENT, ABLE TO MAKE NEEDS KNOWN WITHOUT DIFFICULTY. PT SPONTANEOUSLY ENGAGES IN APPROPRIATE CONVERSATIONS WITH STAFF AND PEERS. PT DENIES HALLUCINATIONS, NO RESPONSE TO INTERNAL STIMULI NOTED. NO PARANOIA OR DELUSIONS NOTED. PT REPORTS INTERMITTENT SUICIDAL THOUGHTS WITHOUT PLAN, CONTRACTS FOR SAFETY. PT IS MEDICATION COMPLIANT WITHOUT DIFFICULTY. NO AGGRESSIVE BEHAVIORS DISPLAYED. NO DISTRESS NOTED. P- PLAN TO CONTINUE CURRENT TX, CONTINUE TO MONITOR MOOD AND BEHAVIORS, PROVIDE APPROPRIATE REORIENTATION, REDIRECTION AND 1:1 NEEDED. CONTINUE TO ENCOURAGE MEDICATION COMPLIANCE WELL GROUP ATTENDANCE AND PARTICIPATION.
--- NOTE | 2019-12-08 19:42 | NUR ---
24 HR chart check completed.
[2019-12-08 19:52] VITALS: BP 116/66
--- NOTE | 2019-12-08 20:59 | NUR ---
P-MILDLY DEPRESSED I-1:1 FOR EMOTIONAL SUPPORT, ADMINISTER MEDS, MONITOR SLEEP R-ALERT & ORIENTED X 4. MILDLY DEPRESSED MOOD BUT STATED THAT SHE IS STARTING TO FEEL BETTER. DENIES ANY SUICIDAL THOUGHTS. CONTRACTS FOR SAFETY. SPENDS LEISURE TIME SITTING IN THE DINING ROOM COLORING. P-CONTINUE TO MONITOR
--- NOTE | 2019-12-09 00:32 | NUR ---
PT REQUESTED & MEDICATED WITH TYLENOL 1000 MG PO @ 2319 FOR C/O LOWER BACK PAIN. RATED PAIN 8/10
--- NOTE | 2019-12-09 04:53 | NUR ---
TYLENOL HAS BEEN EFFECTIVE & PT HAS SLEPT PAST 2129 WITH 2 BRIEF AWAKENINGS TO GO TO THE BATHROOM WITH STAFF ASSISTANCE.
[2019-12-09 07:49] VITALS: BP 118/74
--- NOTE | 2019-12-09 08:20 | NUR ---
Patient eating breakfast in dining room with peers. Respirations easy and regular. Vital signs stable. No overt distress. PAM PEÑALOZA & updated on pt progress.
--- NOTE | 2019-12-09 08:30 | NUR ---
Treatment Plan meeting was held via telephone with Dr. Smith, MARY ALICE Vargas, KENYON, FISH PROCESSING SUPERVISOR-S and Tool And Machine Maintainer. Plan for discharge Sunday with return to [facility].
--- NOTE | 2019-12-09 08:50 | NUR ---
PHYSICAL THERAPY Patient seen this am for therapy visit and was sitting up in activity room w/c upon therapist arrival. Radhaen identified by name / and stated she felt a little depressed this morning. Therapist offered encouragement and after some casual conversation became quite pleasant with a big happy smile. OT health education assistant was also present for observation only this session as patient transported via w/c to conference room for seated B LE therex, all planes, x 20 reps each to increase LE strength. R side weaker than L side during LAQ ex as patient also completed several sit to stand transfers, MOD A, requiring v/c to improve safe transfer technique to avoid retrograde posture upon initial rise. Patient ambulated 12'x 1, wh walker, CGA, demonstrating decreased stride, increased difficulty advancing LE's forward, secondary to c/o of chronic LBP. Patient returned to w/ and remained in activity room with body alarm, under [facility] staff Supervision. Will continue per POC as tolerated, total treatment time 18 minutes. Lai Mello, BRADLEY LINEBACKER CREWMEMBER
--- NOTE | 2019-12-09 09:05 | NUR ---
OT NOTE Pt was seen this A.M. 1:1 for 20 minute OT session with GLASS CUTTING MACHINE FEEDER and nursing staff present for observation only. Upon arrival pt was sitting upright in the w/c in the dining brown. Pt identified by name and and had complaints of low back pain which she did not rate on 0-10 pain scale. Pt was taken out to the hallway where she completed BUE towel exercises over all planes of motion for 1 X 10 to increase and restore maximum functional use. Pt then completed multiple sit to stand transfers from chair level with Marisa and use of w/w for UE support. Pt was educated on proper hand placement for increased I and improved technique. Challenged pt's static standing tolerance needed for increased I in self care tasks and functional transfers, pt was able to tolerate aprox 45-60 seconds at a time before sitting due to fatigue. Functional mobility was then completed back to the dining brown with Marisa and use of w/w, pt had one LOB that required modA to correct. Pt was left sitting upright in the w/c in the dining brown under [facility] staff supervision and body alarm activated for safety. Continue with POC as able. ABRAHAM Santiago/Cee
--- NOTE | 2019-12-09 09:13 | NUR ---
PATIENT COMPLAINING OF BACK PAIN, RATE 8/10. PRN TYLENOL 1000MG GIVEN PO PER ORDER.
--- NOTE | 2019-12-09 11:48 | NUR ---
Received Call from Neema Loomis Flexographic Printing Machinist at [facility]. Facility is requiring Rapid Covid Test Prior to discharge tommorow. Pt. had testing done on admission here to [facility] and industrial service technician states facility will not accept patient until Rapid Covid is Completed with Negative result. Notiied [facility] Director Robby Da Silva via text of facility request.
--- NOTE | 2019-12-09 15:18 | NUR ---
Shift chart check completed.
[2019-12-09 20:00] VITALS: BP 116/68
--- NOTE | 2019-12-10 00:57 | NUR ---
ISOLATIVE TO SELF IN DININGROOM. ENJOYS COLORING. INTERACTIVE WITH STAFF AND MEDICATION COMPLIANT. STATES FEELS LESS LIKE HURTING HERSELF TODAY BUT SHE HAS BEEN HAVING GOOD MEMORIES OF HER MOTHER MONITOR FOR CHANGES IN BEHAVIOR/MOOD. MONITOR Q15 MINUTES AND PRN FOR SAFETY ASSIST WITH TURNS IN BED IF NEEDED
--- NOTE | 2019-12-10 03:06 | NUR ---
24 HR chart check completed.
--- NOTE | 2019-12-10 06:07 | NUR ---
SLEPT WELL EXCEPT WHEN SHE NEEDED TO VOID. ASSISTED IN TURNING Q 2 HOURS AND PRN
[2019-12-10] MEDS ORDERED: BRIN20TA PO (07:23)
[2019-12-10 08:00] VITALS: BP 110/58
--- NOTE | 2019-12-10 08:15 | NUR ---
Treatment Plan meeting was held via telephone with Dr. Smith, MARY ALICE Vargas, KENYON, RACE BOARD ATTENDANT-S and Vibrator Operator. Plan for discharge today. Pt. will return to [facility]. Transportation arranged with [facility] to transport with picker/puller time 2:00 p.m.
--- NOTE | 2019-12-10 08:27 | NUR ---
DR. MEMBRENO NOTIFIED OF PATIENT BEING DISCHARGED TODAY.
--- NOTE | 2019-12-10 11:47 | NUR ---
Discharge Paperwork faxed to [facility] along with copy of Negative Rapid Covid Test.
--- NOTE | 2019-12-10 15:11 | NUR ---
OCCUPATIONAL THERAPY CO-SIGN I approve of the Occupational Therapy notes written above. FLAKITO SPARKS, OTR/L
--- NOTE | 2019-12-11 07:38 | NUR ---
Patient discharged yesterday to the [facility]. Follow-up will be with Dr Smith, visiting psychiatrist. While at [facility], pt's mood improved. Pt denies suicidal ideations. Prior to discharge, pt voiced hope for her future and was able to state goals for her future.
--- NOTE | 2019-12-11 07:45 | NUR ---
PHYSICAL THERAPY CO-SIGN I approve of the Physical Therapy notes written above. Shelley Jimenez PT
== END 2019-12-10 14:37 | disposition other institution (70) | DRG 885 ==
LOC: 3N 14:02
PROVIDERS: ADMIT Psychiatry & Neurology Psychiatry
DX: F33.3 Major depressive disorder, recurrent, severe with psychotic symptoms (principal); R45.851 Suicidal ideations; E53.8 Deficiency of other specified B group vitamins; F41.9 Anxiety disorder, unspecified; D64.9 Anemia, unspecified; E87.8 Other disorders of electrolyte and fluid balance, not elsewhere classified; F79 Unspecified intellectual disabilities; G89.29 Other chronic pain; M54.9 Dorsalgia, unspecified; E55.9 Vitamin D deficiency, unspecified; Z88.0 Allergy status to penicillin; Z88.5 Allergy status to narcotic agent; Z88.6 Allergy status to analgesic agent; Z90.49 Acquired absence of other specified parts of digestive tract; Z98.84 Bariatric surgery status; Z87.891 Personal history of nicotine dependence; Z79.899 Other long term (current) drug therapy